=== PATIENT | male | born 1970 | race Caucasian/White ===

== ENCOUNTER 2018-04-17 15:06 | Observation (INO) ==
[2018-04-17 16:07] LABS: Bilirubin,Urine Small (Negative); Blood,Urine Negative (Negative); Clarity,Urine Clear (Clear); Color,Urine Dark Yellow (Yellow); Glucose,Urine (UA) Normal (Normal); Ketones,Urine Trace mg/dL (Negative); Leukocyte Esterase,Urine Trace (Negative); Nitrite,Urine Negative (Negative); Protein,Urine Trace mg/dL (Neg-Trace); Specific Gravity,Urine 1.022 (1.010-1.025); Urobilinogen,Urine Normal (Normal)
[2018-04-17 16:08] LABS: Bacteria,Urine None Seen per hpf (None-Few); Hyaline Casts,Urine None Seen per lpf (None-Few); RBC,Urine 0-3 per hpf (0-3); Squamous Epithelial Cell,Urine Moderate per lpf (None-Few); WBC,Urine 0-3 per hpf (0-3)
--- NOTE | 2018-04-17 16:20 | Emergency Department Note ---
Disposition Clinical Impression: Acute appendicitis Qualifiers: Acute appendicitis type: unspecified acute appendicitis type Qualified Code(s) : K35.80 - Unspecified acute appendicitis Disposition: Admitted As Inpatient Referrals: Adriano Oseguera MD [Primary Care Provider] - Forms: ED Satisfaction Letter, Work/School Release Time of Disposition: 17:45 Abdominal Pain HPI - General Chief Complaint: ED Abdominal Pain Stated Complaint: Lower ABD PAin x 5 days Time Seen by Provider: 04/17/18 16:13 Source: patient Mode of arrival: ambulatory Limitations: no limitations Nursing Notes Reviewed: Yes Vital Signs Reviewed: Yes - History of Present Illness HPI Narrative: 48-year-old who comes in with a 5 day history of right lower quadrant pains got progressively worse. Pain with going over bumps in the car driving in. Pt Subjective Complaint: abdominal pain Onset (ago): day(s) Consistency: constant (5) Location: RLQ Pain Scale: 7 Quality: aching, sharp Radiation: none Migration to: RLQ Improves with: nothing Worsens with: movement Associated symptoms: Reports: nausea, diarrhea Treatments prior to arrival: none - Related Data Allergies Allergy/AdvReac Type Severity Reaction Status Date / Time gabapentin [From Neurontin] AdvReac Joint Pain Verified 04/17/18 15:20 NSAIDS (Non-Steroidal AdvReac Vomiting Verified 04/17/18 15:20 Anti-Inflamma pregabalin [From Lyrica] AdvReac Joint Pain Verified 04/17/18 15:20 Constitutional: Denies: fever, chills, weakness, weight change Eyes: Denies: eye pain, eye discharge, vision change ENT ED: Denies: ear pain, throat pain, dental pain, hearing loss, epistaxis, congestion, dysphagia Cardiovascular: Denies: chest pain, palpitations, dyspnea on exertion, edema, syncope Respiratory: Denies: cough, dyspnea, wheezes, hemoptysis, stridor Gastrointestinal: Reports: abdominal pain. Denies: nausea, vomiting, diarrhea, constipation, hematemesis, melena, hematochezia Genitourinary: Denies: urgency, dysuria, frequency, hematuria Musculoskeletal: Denies: back pain, neck pain, arthralgia, myalgia Integumentary: Denies: rash, abrasion, lesions Neurological: Denies: headache, weakness, numbness, paresthesias, confusion, abnormal gait, vertigo Psychiatric: Denies: anxiety, depression, suicidal thoughts, homicidal thoughts , auditory hallucinations, visual hallucinations Endocrine: Denies: fatigue Hematological/Lymphatic: Denies: easy bleeding, easy bruising Allergic/Immunologic: Denies: facial swelling, urticaria Abdominal Pain PMH - Past Medical History Medical history: Reports: hypertension, other Male Surgical History: Reports: orthopedic, other, other Psychiatric history: Reports: depression - Social History Smoking status: Never smoker Alcohol use: Reports: rarely Drug use: Reports: none Physical Exam - General Limitations: no limitations General appearance: alert, in no apparent distress - Head Head exam: atraumatic, normocephalic, normal inspection - Eye Eye exam: Present: normal appearance, PERRL, EOMI - ENT ENT exam: normal exam, normal oropharynx, mucous membranes moist - Neck Neck exam: Present: normal inspection, full ROM, trachea midline - Chest Chest inspection: Present: normal inspection - Respiratory Respiratory exam: Present: normal lung sounds bilaterally - Cardiovascular Cardiovascular exam: Present: regular rate, normal rhythm, normal heart sounds - Abdominal Exam Abdominal exam: Present: tenderness, guarding Abdominal tenderness: Present: RLQ - Extremities Exam Extremities exam: Present: normal inspection, full ROM. Absent: tenderness, pedal edema - Expanded Lower Extremity Exam Neurovascular/Tendon exam: Absent: motor deficit, sensory deficit, tendon deficit Gait: observed and normal - Back Exam Back exam: Present: normal inspection, full ROM. Absent: tenderness - Neurological Exam Neurological exam: Present: alert, oriented X3 - Psychiatric Psychiatric exam: Present: normal affect, normal mood - Skin Skin exam: Present: warm, dry, intact, normal color Course - Reevaluation(s) Reevaluation #1: 48-year-old with progressive right lower quadrant pain. White count elevated 15.3, CT shows findings consistent with acute appendicitis also possible underlying inflammatory changes of the cecum related to reactive from the appendix versus an underlying malignancy cannot be excluded. Admit. To the surgeon for further evaluation and treatment. Time: 17:44 - Consultations Consultation #1: Discussed with Dr. Henson, admit Time: 17:44 Vital Signs Temperature 98.2 F 04/17/18 15:16 Pulse Rate 84 04/17/18 15:16 Respiratory Rate 16 04/17/18 15:16 Blood Pressure 128/76 04/17/18 15:16 O2 Sat by Pulse Oximetry 96 04/17/18 15:16 Temperature 98.2 F 04/17/18 15:16 Pulse Rate 94 04/17/18 16:35 Respiratory Rate 20 04/17/18 16:35 Blood Pressure 125/78 04/17/18 16:35 O2 Sat by Pulse Oximetry 95 04/17/18 16:47 Oxygen Delivery Oxygen Delivery Room Air Abdominal Pain - Lab Data Lab results reviewed: Yes I reviewed the patient's lab results. Result diagrams: 04/17/18 16:12 04/17/18 16:12 Lab Results 04/17/18 04/17/18 04/17/18 Range/Units 15:17 16:12 16:12 WBC 15.3 H (4.3-11.1) K/mcL RBC 7.09 H (4.19-5.50) M/mcL Hgb 14.1 (12.9-16.9) g/dL Hct 45.7 (37.5-50.1) % MCV 64.5 L (83.0-100.0) fL MCH 19.9 L (28.0-33.3) pg MCHC 30.9 L (31.6-35.5) g/dL RDW 18.3 H (11.5-14.5) % Plt Count 269 (140-400) K/mcL MPV 10.6 (9.4-12.4) fL Immature Gran % 0.5 (0-4) % Seg Neutrophils % 73.8 % Lymphocytes % 15.8 % Monocytes % 8.0 % Eosinophils % 1.4 % Basophils % 0.5 % Neutrophils # 11.3 H (1.6-8.9) K/mcL Lymphocytes # 2.4 (0.6-4.6) K/mcL Monocytes # 1.2 (0.0-1.3) K/mcL Eosinophils # 0.2 (0.0-0.6) K/mcL Basophils # 0.1 (0.0-0.2) K/mcL Large Platelets Present A (Not Present) Macrocytosis Present A (Not Present) Sodium 128 L (136-145) mEq/L Potassium 4.1 (3.5-5.1) mEq/L Chloride 94 L (98-107) mEq/L Carbon Dioxide 29 (23-29) mEq/L BUN 14 (6-20) mg/dL Creatinine 1.06 (0.70-1.30) mg/dL Est GFR ( Amer) > 60 (> 60) Est GFR (Non-Af Amer) > 60 (> 60) BUN/Creatinine Ratio 13 (6-26) Glucose 151 H (70-105) mg/dL Calculated Osmolality 269 L (280-300) Calcium 9.9 (8.6-10.3) mg/dL Total Bilirubin 0.6 (0.3-1.0) mg/dL Direct Bilirubin 0.1 (0.0-0.2) mg/dL Indirect Bilirubin 0.5 (0.0-1.2) mg/dL AST 14 (13-39) Units/L ALT 20 (7-52) Units/L Alkaline Phosphatase 66 (34-104) Units/L Serum Total Protein 7.5 (6.4-8.9) g/dL Albumin 4.8 (3.5-5.7) g/dL Globulin 2.7 (2.4-3.5) g/dL Albumin/Globulin Ratio 1.8 (1.1-2.2) Lipase 17 (11-82) Units/L Urine Color Dark Yellow (Yellow) Urine Clarity Clear (Clear) Urine pH 6.0 (5.0-8.0) pH Units Ur Specific [place] 1.022 (1.010-1.025) Urine Protein Trace (Neg-Trace) mg/dL Urine Glucose (UA) Normal (Normal) mg/dL Urine Ketones Trace H (Negative) mg/dL Urine Blood Negative (Negative) Urine Nitrite Negative (Negative) Urine Bilirubin Small H (Negative) Urine Urobilinogen Normal (Normal) mg/dL Ur Leukocyte Esterase Trace H (Negative) Urine Microscopic RBC 0-3 (0-3) per hpf Urine Microscopic WBC 0-3 (0-3) per hpf Ur Squamous Epith Cells Moderate H (None-Few) per lpf Urine Bacteria None Seen (None-Few) per hpf Hyaline Casts None Seen (None-Few) per lpf - Radiology Data Radiology results reviewed: Yes I reviewed the patient's radiology results. Abdomen/Pelvis CT 04/17/18 16:18 IMPRESSION: 1. Findings most consistent with changes related to appendicitis. Small amount of free fluid within the pelvis with no evidence of drainable fluid collection/abscess. 2. Findings suspicious for presence of underlying mural thickening involving the base of the cecum. Finding may merely be reactive in nature however a focal process intrinsic to the base of the cecum including inflammatory process and/or neoplastic disease cannot be excluded based on this examination. 3. No evidence of bowel obstruction, intraperitoneal free air, or abscess. D/ / Wilson Benitez MD / Wilson Benitez MD Interpreting Provider: Wilson Benitez MD
[2018-04-17 16:29] LABS: Basophils # 0.1 K/mcL (0.0-0.2); Basophils % 0.5 %; Eosinophils # 0.2 K/mcL (0.0-0.6); Eosinophils % 1.4 %; Hematocrit 45.7 % (37.5-50.1); Hemoglobin 14.1 g/dL (12.9-16.9); Immature Granulocytes % 0.5 % (0-4); Lymphocytes # 2.4 K/mcL (0.6-4.6); Lymphocytes % 15.8 %; Mean Corpuscular HGB Conc 30.9 g/dL (31.6-35.5); Mean Corpuscular Hemoglobin 19.9 pg (28.0-33.3); Mean Corpuscular Volume 64.5 fL (83.0-100.0); Mean Platelet Volume 10.6 fL (9.4-12.4); Monocytes # 1.2 K/mcL (0.0-1.3); Neutrophils # 11.3 K/mcL (1.6-8.9); Platelet Count 269 K/mcL (140-400); Red Blood Count 7.09 M/mcL (4.19-5.50); Red Cell Distribution Width 18.3 % (11.5-14.5); Segmented Neutrophils % 73.8 %
[2018-04-17 16:53] LABS: Large Platelets Present (Not Present); Macrocytosis Present (Not Present)
[2018-04-17 16:55] LABS: Alanine Aminotransferase 20 Units/L (7-52); Albumin 4.8 g/dL (3.5-5.7); Albumin/Globulin Ratio 1.8 (1.1-2.2); Alkaline Phosphatase 66 Units/L (34-104); Aspartate Amino Transferase 14 Units/L (13-39); BUN/Creatinine Ratio 13 (6-26); Bilirubin,Direct 0.1 mg/dL (0.0-0.2); Bilirubin,Indirect 0.5 mg/dL (0.0-1.2); Bilirubin,Total 0.6 mg/dL (0.3-1.0); Blood Urea Nitrogen 14 mg/dL (6-20); Calcium 9.9 mg/dL (8.6-10.3); Carbon Dioxide 29 mEq/L (23-29); Chloride 94 mEq/L (98-107); Globulin 2.7 g/dL (2.4-3.5); Glucose 151 mg/dL (70-105); Lipase 17 Units/L (11-82); Osmolality,Calculated 269 (280-300); Potassium 4.1 mEq/L (3.5-5.1); Sodium 128 mEq/L (136-145); Total Protein 7.5 g/dL (6.4-8.9); eGFR For African Americans > 60 (> 60); eGFR For Non-African Americans > 60 (> 60)
[2018-04-17] MEDS ORDERED: cefOXitin 1,000 MG in 0.9 % Sodium Chloride Mini Bag 100 ML IVPB STA (17:40)
[2018-04-17] MEDS ORDERED: Ondansetron 4 MG/2 ML VIAL IVP PRN (17:48)
[2018-04-17] MEDS ORDERED: cefOXitin 2,000 MG in 0.9 % Sodium Chloride Mini Bag 100 ML IVPB STA (17:52)
[2018-04-17] MEDS: 0.9 % Sodium Chloride 1,000 ML IVC SCH (18:09)
[2018-04-17] MEDS: OXYCODONE Oral CONC 10 MG/0.5 ML ORAL.SYG SL SCH (21:04)
[2018-04-18] MEDS: OXYCODONE Oral CONC 10 MG/0.5 ML ORAL.SYG SL SCH ×6 (00:33→20:18)
--- NOTE | 2018-04-18 03:31 | General Surg History&Physical ---
Date of Encounter: 04/18/18 Time of Encounter: 03:29 Assessment and Plan (1) Acute appendicitis Current Visit: Yes Status: Acute The assessment and plan as outlined above was discussed with the patient and/or family members who expressed understanding and agreement. All questions were answered. Plan for laparoscopic appendectomy. Risks, benefits, and expected outcomes explained the patient and he agrees to proceed. Qualifiers: Acute appendicitis type: with localized peritonitis Qualified Code(s): K35.3 - Acute appendicitis with localized peritonitis History of Present Illness HPI: Mr. Mcmanus is a 48 year old male this is a 48-year-old male that presents to the emergency department with right lower quadrant pain for the last 5 days. He was camping and felt as if maybe he ate something that did not agree with him worse. He has had some nausea. He denies any vomiting. He does report subjective fevers. He currently reports anorexia. Past Med Surg Social Fam HX - Past Medical History Medical history: hypertension, other Psychiatric history: depression - Past Surgical History Surgical History: no surgical history Additional surgical history: back surgery x7 - Social History Smoking Status: Never smoker Smokeless Tobacco Status: No Alcohol use: rarely Drug use: none Medications and Allergies Escitalopram [Lexapro] 20 mg PO DAILY 04/17/18 [History] Lisinopril-HCTZ 20-12.5 [Prinzide 20-12.5] 2 tab PO DAILY 04/17/18 [History] Morphine Sulfate SR (12 HR) [MS Contin] 1 tab PO Q12HR 04/17/18 [History] Potassium Chloride [K-Tab ER] 10 meq PO BID 04/17/18 [History] Promethazine [Phenergan] 50 mg PO Q6H PRN 04/17/18 [History] Testosterone Cypionate [Depo-Testosterone] 150 mg IM Q10D 04/17/18 [History] Tizanidine HCl 4 mg PO QID PRN 04/17/18 [History] 3 Allergy/AdvReac Type Severity Reaction Status Date / Time gabapentin [From Neurontin] AdvReac Joint Pain Verified 04/17/18 15:20 NSAIDS (Non-Steroidal AdvReac Vomiting Verified 04/17/18 15:20 Anti-Inflamma pregabalin [From Lyrica] AdvReac Joint Pain Verified 04/17/18 15:20 Review of Systems All systems PM: reviewed and no additional remarkable complaints except as stated All systems PM: The remainder of the systems were reviewed and are negative General Surgery Exam Initial Vital Signs Temp Pulse Resp BP Pulse Ox 98.2 F 84 16 128/76 96 04/17/18 15:16 04/17/18 15:16 04/17/18 15:16 04/17/18 15:16 04/17/18 15:16 - General physical appearance well nourished, no distress - Eyes PERRL, normal ocular movement - Neck trachea midline - Respiratory normal respiratory effort - Cardiovascular Cardiovascular exam: Present: RRR - Abdomen Abdomen general surgery: Present: soft Abdominal Tenderness: Present: RLQ - Integumentary Integumentary general surgery: Present: warm and dry, no abnormal pigmentation - Neurologic Present: CN 2-12 grossly intact - Musculoskeletal Present: normal gait - Psychiatric Psychiatric general surgery: Present: A&Ox3 Results - Labs 04/17/18 16:12 04/17/18 16:12 Abnormal lab results WBC 15.3 K/mcL (4.3-11.1) H 04/17/18 16:12 RBC 7.09 M/mcL (4.19-5.50) H 04/17/18 16:12 MCV 64.5 fL (83.0-100.0) L 04/17/18 16:12 MCH 19.9 pg (28.0-33.3) L 04/17/18 16:12 MCHC 30.9 g/dL (31.6-35.5) L 04/17/18 16:12 RDW 18.3 % (11.5-14.5) H 04/17/18 16:12 Neutrophils # 11.3 K/mcL (1.6-8.9) H 04/17/18 16:12 Large Platelets Present (Not Present) A 04/17/18 16:12 Macrocytosis Present (Not Present) A 04/17/18 16:12 Sodium 128 mEq/L (136-145) L 04/17/18 16:12 Chloride 94 mEq/L (98-107) L 04/17/18 16:12 Glucose 151 mg/dL (70-105) H 04/17/18 16:12 Calculated Osmolality 269 (280-300) L 04/17/18 16:12 Urine Ketones Trace mg/dL (Negative) H 04/17/18 15:17 Urine Bilirubin Small (Negative) H 04/17/18 15:17 Ur Leukocyte Esterase Trace (Negative) H 04/17/18 15:17 Ur Squamous Epith Cells Moderate per lpf (None-Few) H 04/17/18 15:17 All other labs normal. - Imaging CT scan - abdomen: image reviewed CT scan - pelvis: image reviewed
--- NOTE | 2018-04-18 07:11 | Anesthesia Evaluation PreOp ---
Date of Encounter: 04/18/18 Time of Encounter: 07:09 - Past History Planned Operation: Laparoscopic Appendectomy Cardiac History: HTN Pulmonary History: Former smoker (quit 25 years ago), Asthma, Snore HVAC SPECIALIST History: Other (chronic back pain) Other Medical History: Thyroid, Other (depression) Anesthesia History: No Prior Anesthetic Complications, Past Anesthesia Alcohol Use: rarely Drug use: none Medications and Allergies Escitalopram [Lexapro] 20 mg PO DAILY 04/17/18 [History] Lisinopril-HCTZ 20-12.5 [Prinzide 20-12.5] 2 tab PO DAILY 04/17/18 [History] Morphine Sulfate SR (12 HR) [MS Contin] 1 tab PO Q12HR 04/17/18 [History] Potassium Chloride [K-Tab ER] 10 meq PO BID 04/17/18 [History] Promethazine [Phenergan] 50 mg PO Q6H PRN 04/17/18 [History] Testosterone Cypionate [Depo-Testosterone] 150 mg IM Q10D 04/17/18 [History] Tizanidine HCl 4 mg PO QID PRN 04/17/18 [History] 3 Allergy/AdvReac Type Severity Reaction Status Date / Time gabapentin [From Neurontin] AdvReac Joint Pain Verified 04/17/18 15:20 NSAIDS (Non-Steroidal AdvReac Vomiting Verified 04/17/18 15:20 Anti-Inflamma pregabalin [From Lyrica] AdvReac Joint Pain Verified 04/17/18 15:20 - Meds/Allergy Pre-op Review Medications Reviewed: Yes Allergies Reviewed: Yes Beta Blockers on Current Med List: No Anesthesia Results - Labs 04/17/18 16:12 04/17/18 16:12 Anesthesia Exam Vital Signs/O2 Sat, Most Current Temp Pulse Resp BP Pulse Ox 98.2 F 74 16 117/67 93 04/18/18 06:49 04/18/18 06:49 04/18/18 06:49 04/18/18 06:49 04/18/18 06:49 Height: 5'7''/1.7m Weight: 190 lbs/86 kg NPO (# of Hours): 8 Pain Scale: 6 (abdomen) Pain Scale Used: Numeric (1 - 10) - HEENT Pupil (Motor): EOMI Mallampati: III Teeth: Normal (chipped upper front tooth) Oral Opening: Greater than 3 - HVAC SPECIALIST LOC: Oriented HVAC SPECIALIST Motor: Normal RUE, Normal LUE, Normal Face, Deficit RLE, Deficit LLE HVAC SPECIALIST Sensory: Normal: RUE, LUE, Face, Deficit: RLE, LLE - Cardiac Rhythm: Regular Murmur: None - Pulmonary Breath Sounds: bilateral Clear Respiratory Effort: Symmetrical Anesthesia Assess/Plan ASA Score: 2 Modified [place] Scale for Level of Consciousness: Cooperative, oriented, and tranquil Anesthetic Plan: General Monitoring Plan: Standard Monitors Recovery Plan: PACU
[2018-04-18] MEDS ORDERED: *HR* Propofol 200 MG/20 ML VIAL IVP ONE (07:24)
[2018-04-18] MEDS ORDERED: *HR* Midazolam HCl 2 MG/2 ML VIAL ONE (07:24)
[2018-04-18] MEDS ORDERED: *HR* FentaNYL (PF) 100 MCG/2 ML VIAL ONE (07:24)
[2018-04-18] MEDS ORDERED: *HR* Succinylcholine 200 MG/10 ML VIAL IVP ONE (07:26)
[2018-04-18] MEDS ORDERED: Ondansetron 4 MG/2 ML VIAL ONE (07:26)
[2018-04-18] MEDS ORDERED: *HR* Rocuronium Bromide 50 MG/5 ML VIAL ONE (07:26)
[2018-04-18] MEDS ORDERED: Dexamethasone 4 MG/ML VIAL ONE (07:26)
[2018-04-18] MEDS ORDERED: Albuterol 2.5 MG/3 ML NEBULIZER IH ONE (07:29)
[2018-04-18] MEDS ORDERED: Albuterol 2.5 MG/3 ML NEBULIZER ONE (07:31)
[2018-04-18] MEDS ORDERED: Lidocaine -MPF 4% 5 ML AMPUL ONE (07:50)
[2018-04-18] MEDS ORDERED: Lidocaine -MPF 2% 2 ML VIAL ONE (07:50)
--- NOTE | 2018-04-18 08:26 | Operative Note ---
Date of procedure: 04/18/18 Pre-op diagnosis: appendicitis Post-op diagnosis: same Procedure: Laparoscopic appendectomy Anesthesia: FRANCHESKA Surgeon: Idris Henson Was there an assistant grocery present: No Estimated blood loss (cc): 5 Specimen: appendix Condition: stable Disposition: same day Procedure in Detail: After informed consent, patient was taken to the operating room placed in supine position. After adequate sedation anesthesia the abdomen was prepped and draped. A 12 mm cannula was placed in the umbilicus. A 5 mm cannulas placed in suprapubic region and the left lower quadrant. Camera was inserted and the abdomen after a pneumoperitoneum. 2 April graspers were used to identify the base of the appendix. A appendiceal window was created. A LEIGHANN endoscopic stapler was placed across the base. A vascular load was placed across the mesoappendix. Once the appendix was was placed in an Endobag and removed through the umbilicus. The right lower quadrant was suctioned dry no bleeding was identified. Remainder the pneumoperitoneum was evacuated. The umbilicus was closed with an 0 Vicryl suture in [id number] fashion. Skin was closed with 4-0 Vicryl suture and Dermabond.
[2018-04-18] MEDS ORDERED: *HR* Morphine 2 MG/ML SYRINGE IVP PRN ×2 (08:31→09:58)
[2018-04-18] MEDS ORDERED: Acetaminophen IV 1,000 MG/100 ML INFUS..BTL IVPB ONE ×2 (08:31→09:58)
[2018-04-18] MEDS ORDERED: *HR* Morphine 10 MG/ML VIAL ONE (08:54)
[2018-04-18] MEDS: *HR* Promethazine 25 MG/ML VIAL IVP PRN ×2 (09:29→09:36)
--- NOTE | 2018-04-18 10:23 | Anesthesia Evaluation Post Op ---
Date of Encounter: 04/18/18 Time of Encounter: 10:03 - Vital Signs Vital Signs: Vital Signs/O2 Sat, Most Current Temp Pulse Resp BP Pulse Ox 98.9 F 91 14 152/94 98 04/18/18 09:45 04/18/18 09:55 04/18/18 09:55 04/18/18 09:55 04/18/18 09:55 - Lungs Lungs: Clear Ascult./Percussion - Airway Airway: Non-obstructed - Cardiovascular Regular Rate - Mental Status Mental Status: Asleep with brisk response to light stimulation - Pain Pain Scale: 4 Pain Scale used: Numeric (1 - 10) - Nausea Vomiting Nausea Vomiting: Responds to treatment with IV Meds - Hydration Hydration: NPO, Has not voided - Discharge PostOp Status: Transfer Patient to floor
[2018-04-18] MEDS: Ondansetron 4 MG/2 ML VIAL IVP PRN ×2 (10:38→22:11)
[2018-04-18] MEDS: OXYCODONE Oral CONC 10 MG/0.5 ML ORAL.SYG SL PRN (13:26)
[2018-04-18] MEDS: 0.9 % Sodium Chloride 1,000 ML IVC SCH (13:27)
[2018-04-18] MEDS ORDERED: tiZANidine 4 MG TABLET PO PRN (21:02)
[2018-04-19] MEDS: OXYCODONE Oral CONC 10 MG/0.5 ML ORAL.SYG SL SCH ×4 (00:13→11:52)
[2018-04-19] MEDS: OXYCODONE Oral CONC 10 MG/0.5 ML ORAL.SYG SL PRN (00:14)
[2018-04-19] MEDS: 0.9 % Sodium Chloride 1,000 ML IVC SCH ×3 (02:38→10:25)
[2018-04-19 06:57] LABS: Basophils % 0.1 %; Eosinophils % 0.1 %; Immature Granulocytes % 0.5 % (0-4); Lymphocytes # 1.1 K/mcL (0.6-4.6); Lymphocytes % 9.7 %; Mean Corpuscular HGB Conc 31.3 g/dL (31.6-35.5); Mean Corpuscular Hemoglobin 20.1 pg (28.0-33.3); Mean Corpuscular Volume 64.2 fL (83.0-100.0); Mean Platelet Volume 11.1 fL (9.4-12.4); Monocytes # 1.3 K/mcL (0.0-1.3); Monocytes % 11.1 %; Platelet Count 301 K/mcL (140-400); Red Blood Count 6.23 M/mcL (4.19-5.50); Red Cell Distribution Width 17.5 % (11.5-14.5); Segmented Neutrophils % 78.5 %
[2018-04-19 07:05] LABS: Hemoglobin 12.5 g/dL (12.9-16.9)
[2018-04-19 07:33] LABS: Anisocytosis 1+ (Not Present); Platelet Estimate Normal (Normal); Poikilocytosis 1+ (Not Present)
[2018-04-19 10:58] VITALS: BP 101/53
--- NOTE | 2018-04-19 14:04 | Discharge Summary ---
Orders not resulted at time of discharge: Pending orders 04/18/18 09:17 Surgical Pathology [PTH] Routine Date of Encounter: 04/19/18 Time of Encounter: 12:00 General Surgery Exam VITAL SIGNS: Reviewed. See [facility] GENERAL: no apparent distress. HEENT: [Normocephalic, PER, EOMi, oropharynx pink/moist, no JVD noted.] CV: b/l rad pulses 2+, RRR, no murmurs or gallops, no JVD RESPIRATORY: CTAB without wheezes, rales, or rhonchi ABD: soft, minor diffuse abdominal tenderness of exam, no rebound/guarding/ rigidity, no peritoneal signs. Normal bowel sounds present. INCISION: umbilical incision clean, dry, intact without purulence/bleeding/edema /rubor/calor EXTREMITY: grossly normal motor function, no pedal edema, peripheral pulses 2+ b /l NEUROLOGIC EXAM: AOx3, obeys commands, no speech deficits. PSYCHIATRIC: normal mood and affect SKIN: no gross lesions, rashes, or skin changes Initial Vital Signs Temp Pulse Resp BP Pulse Ox 98.2 F 84 16 128/76 96 04/17/18 15:16 04/17/18 15:16 04/17/18 15:16 04/17/18 15:16 04/17/18 15:16 - Hospital Course Hospital course: Mr. Mcmanus is a 48 year old male with a PMH of HTN that presented on 04/17/18 for right lower quadrant pain for the last 5 days. He admitted to some nausea but denied any vomiting. He also reported subjective fevers. When he reported to the ED, patient was afebrile, normotensive, and a normal pulse range. Labs revealed a leukocytosis of 15.3. UA was negative. Liver enzymes were normal. Bilirubin levels were within normal range. Abdominal CT showed findings consistent with appendicitis. There was also some underlying mural thickening involving the base of the cecum. Patient was taken to the OR on 04/18/18 where he had a laproscopic cecetomy with appendectomy. When seen today, patient says his abdominal pain level has decreased from yesterday, rating it a 5/10. He admits to having minor nausea last night, but currently denies any. Denies any vomiting. Denies any chest pain or shortness of breath. Denies any fever. Denies any BM but admits to passing gas. Patient's WBC count today has dropped to 11.5. He has been afebrile. Hemoglobin stable at 12.5. Blood pressure range of 101-164/65-99. Patient will be discharged home today. He was advised to eat a low fiber diet. He advised to refrain from heavy lifting of 10 pounds or more. He was warned that if he developed any fever, increased abdominal pain, nausea, vomiting, or mass on his abdomen to contact our clinic or report to the ER immediately. Patient is to call our clinic tomorrow morning to arrange a f/u visit for 2 weeks. He is to f/u with his PCP in 1 week. - Time Spent with Patient Total time spent providing and/or coordinating discharge services: Less than 30 minutes - Discharge Medications Prescriptions: Acetaminophen [Tylenol] 500 mg PO Q6HR 7 Days #56 tablet Ondansetron ODT [Zofran ODT] 4 mg SL Q6HR PRN #15 tab.rapdis PRN Reason: Nausea Docusate [Colace] 100 mg PO BID PRN #30 capsule PRN Reason: Constipation Oxycodone HCl/Acetaminophen [Percocet 5-325 mg Tablet] 1 each PO Q6H PRN 7 Days #28 tablet PRN Reason: Pain Home Medications: Escitalopram [Lexapro] 20 mg PO DAILY 04/17/18 [History] Lisinopril-HCTZ 20-12.5 [Prinzide 20-12.5] 2 tab PO DAILY 04/17/18 [History] Morphine Sulfate SR (12 HR) [MS Contin] 1 tab PO Q12HR 04/17/18 [History] Potassium Chloride [K-Tab ER] 10 meq PO BID 04/17/18 [History] Promethazine [Phenergan] 50 mg PO Q6H PRN 04/17/18 [History] Testosterone Cypionate [Depo-Testosterone] 150 mg IM Q10D 04/17/18 [History] Tizanidine HCl 4 mg PO QID PRN 04/17/18 [History] Acetaminophen [Tylenol] 500 mg PO Q6HR 7 Days #56 tablet 04/19/18 [Rx] Docusate [Colace] 100 mg PO BID PRN #30 capsule 04/19/18 [Rx] Ondansetron ODT [Zofran ODT] 4 mg SL Q6HR PRN #15 tab.rapdis 04/19/18 [Rx] Oxycodone HCl/Acetaminophen [Percocet 5-325 mg Tablet] 1 each PO Q6H PRN 7 Days #28 tablet 04/19/18 [Rx] Allergies/Adverse Reactions: 3 Allergy/AdvReac Type Severity Reaction Status Date / Time gabapentin [From Neurontin] AdvReac Joint Pain Verified 04/17/18 15:20 NSAIDS (Non-Steroidal AdvReac Vomiting Verified 04/17/18 15:20 Anti-Inflamma pregabalin [From Lyrica] AdvReac Joint Pain Verified 04/17/18 15:20 Date of admission: 04/17/18 18:20 Primary care physician: Adriano Oseguera MD Labs on day of discharge: Labs from last 24 hours 04/19/18 06:17 WBC 11.5 H RBC 6.23 H Hgb 12.5 L D Hct 40.0 MCV 64.2 L MCH 20.1 L MCHC 31.3 L RDW 17.5 H Plt Count 301 MPV 11.1 Immature Gran % 0.5 Seg Neutrophils % 78.5 Lymphocytes % 9.7 Monocytes % 11.1 Eosinophils % 0.1 Basophils % 0.1 Neutrophils # 9.0 H Lymphocytes # 1.1 Monocytes # 1.3 Eosinophils # 0.0 Basophils # 0.0 Platelet Estimate Normal Poikilocytosis 1+ A Anisocytosis 1+ A - Patient Status Disposition: Home, Self-Care Condition: Fair Functional capacity at discharge: independent ambulation Overall status at discharge: patient is progressing back to baseline - Discharge Instructions Instructions: Laparoscopic Appendectomy (DC), Colectomy (DC) Follow Up With: Adriano Oseguera MD [Primary Care Provider] - Additional Instructions: You have had a procedure known as an open appendectomy to remove your appendix. The appendix is a worm-shaped hollow pouch attached to the beginning of your large intestine. During an open appendectomy one incision (about 2 to 3 inches long) was made in your lower right side. A longer incision may have been used if the appendix ruptured. Here are guidelines to follow at home. Incision Care Wear loose-fitting clothes. This will help you be more comfortable and cause less irritation around your incision. Shower as usual. Gently wash around your incision with soap and water. Don't bathe or soak in a tub or swim in a pool until your incisions are well healed. Leave the Steri-Strips (little white strips of tape) in place for 10 days. Diet Drink 6 to 8 glasses of water a day, unless directed otherwise. Eat a very low fiber diet: A low-fiber diet can include foods you are used to eating, like cooked vegetables, fruits, white breads, and meats. It does NOT include foods that are higher in fiber or cause gas such as: Beans and legumes Whole grains Many raw vegetables and fruits or their juices Fruit and vegetable skins Nuts and seeds The connective tissues of meats This diet can provide your body's needed: Protein Fluid Salt Vitamins and minerals Activity If you had general anesthesia, don't operate machinery or power tools, drink alcohol, or make major decisions for at least the first 24 hours. Gradually increase activity level to help with your recovery. Start by doing light activities around your home once you feel able to do so. Don't drive until you are no longer taking prescription pain medication. Don't lift anything heavier than 10 pounds until your doctor says it's okay. Limit sports and strenuous activities for 1 or 2 weeks. Follow-Up Make a follow-up appointment with our clinic by calling in Friday. When to Call Your Doctor Call your doctor right away if you have any of the following: Swelling, oozing, increased pain, or unusual redness around the incision Fever of 100.4?F or higher Increasing abdominal pain Severe diarrhea, bloating, or constipation Nausea or vomiting - Diet and Activity Activity: other (Refer to discharge instructions) Diet: other (Refer to discharge instructions)
== END 2018-04-19 15:18 | disposition home or self-care (01) ==
LOC: EMEROO 15:06 → 3ANU 15:06
PROVIDERS: ADMIT Surgery; ATTEND Surgery